=== PATIENT | female | born 1935 | race Caucasian/White ===

== ENCOUNTER → 2019-06-28 | Outpatient (CLI) | payer OTHER ==
[~2019-06-28] MED LIST: ASPIRIN EC81 M1 PO; CARVEDILOL12.5 MG PO; CARVEDILOL25 MG PO; CLONIDINE TTS TOP; CLONIDINE0.1 PO; COZAAR 50 MG TA50 MG PO; COZAAR100 MG PO; LABETALOL 100100 MG PO; LASIX 20 MG TAB20 MG PO; LIPITOR40 MG PO; MIRALAX17 GM PO; MOBIC15 MG PO; MULTIVITAMINS PO; NORVASC 2.5 MG2.5 M1 PO; PRAVACHOL20 MG PO; PROTONIX40 M1 PO; REQUIP0.5 MG PO
== END ==
LOC: M.ULTRA 08:05
DX: I65.23 Occlusion and stenosis of bilateral carotid arteries (principal); Z88.8 Allergy status to other drugs, medicaments and biological substances

== ENCOUNTER → 2019-07-09 | Outpatient (CLI) | payer OTHER ==
[2019-07-09] VITALS (8 sets, daily range): BP systolic 110–149; BP diastolic 58–70
[~2019-07-09] VITALS: Ht 160 cm; Wt 70.3 kg
[2019-07-09 08:51] LABS: HEMATOCRIT 35.5 % (37.0-47.0); HEMOGLOBIN 12.1 gm/dL (12.0-15.0); MCH 30.8 pg (26.0-34.0); MCHC 34.2 g/dL (28.0-37.0); MCV 90.1 fL (80.0-100.0); MPV 9.5 fl. (7.2-11.1); RBC 3.94 mil/uL (4.20-5.00); WBC 6.4 thou/uL (4.0-11.0)
[2019-07-09 09:01] LABS: ANION GAP 7 mmol/L (7-16); BUN 9 mg/dL (7-18); CALCIUM 9.3 mg/dL (8.5-10.1); CHLORIDE 102 mmol/L (98-107); CO2 29 mmol/L (21-32); CREATININE 0.9 mg/dL (0.6-1.3); GLUCOSE 112 mg/dL (70-99); POTASSIUM 4.1 mmol/L (3.5-5.1); SODIUM 138 mmol/L (136-145)
[2019-07-09 09:05] LABS: ALBUMIN 3.5 g/dL (3.4-5.0); ALKALINE PHOSPHATASE 83 U/L (46-116); CHOLESTEROL 210 mg/dL (<200); HDL CHOLESTEROL 46 mg/dL (>40); LDL CHOLESTEROL 113 mg/dL (<100); SGOT 15 U/L (15-37); SGPT 19 U/L (30-65); TC:HDL 4.6 Ratio (Not establshd); TOTAL BILIRUBIN 0.4 mg/dL (<0.1-1.0); TOTAL PROTEIN 6.7 g/dL (6.4-8.2); TRIGLYCERIDE 255 mg/dL (<150); VLDL 51 mg/dL (<40)
[2019-07-09 09:06] LABS: SERUM ASSESSMENT Clear
[2019-07-09 09:31] LABS: APTT 31.4 Seconds (25.0-31.3); PROTIME 10.3 Seconds (9.20-11.50)
--- NOTE | 2019-07-09 14:23 | CARD ---
[address] [address] CARDIAC CATH REPORT Name: POLLY SYED Room: [facility] BENITA SparksCassandra#: [id number] Admission: 07/09/19 Attend Phys: Ghanshyam Gates MD, Discharge: Date of : 37 Report #: [id number] THIS REPORT FOR: //name// APPROVED REPORT Study performed: 07/09/2019 08:17:[address] Gates Procedures Performed Left heart catheterization left ventriculography and selective coronary arteriography Indication Chest pain Risk Factors Hypercholesterolemia, Hypertension Procedure Narrative The patient was brought electively to the Cardiac Catheterization Laboratory and was prepped and draped in a sterile manner. The right femoral was infiltrated with 2% Lidocaine subcutaneous anesthesia. A 6 Surinamese sheath was inserted into the right femoral artery. Coronary angiography was performed using coronary diagnostic catheters. The right coronary system was accessed and visualized with a Diagnostic catheter. The left coronary system was accessed and visualized with a Diagnostic catheter. The left ventricle was accessed and visualized with a Diagnostic catheter. Left ventricular/Aortic Valve gradient assessed via catheter pullback. Left ventriculogram was performed in JAEGER projection. Pre-demployment femoral angiogram was performed . Closure device was deployed with a 6 Fr Mynx. There was no hematoma. Diagnostic Cath Left Main 0% narrowing LAD 100% proximal occlusion with prominent right to left and faint [id number] collaterals filling the distal LAD system Circumflex 0% narrowing Right Coronary Dominant vessel with 20% mid vessel narrowing and 40% proximal posterior descending branch stenosis Left Ventriculography The left ventricle is normal in size with normal contractility. The [address] [address] CARDIAC CATH REPORT Name: POLLY SYED Room: [facility] LISANDRO Clare.#: [id number] Admission: 07/09/19 Attend Phys: Ghanshyam Gates MD, Discharge: Date of : 37 Report #: [id number] left ventricular ejection fraction is estimated to be 65%. Left ventricular wall motion abnormalities are not present. There is no mitral insufficiency. Hemodynamics The aortic pressure is 140/70 mmHg with a mean of 82 mmHg. The left ventricular end diastolic pressure is 20 mmHg. There was no gradient across the aortic valve upon pullback. Conclusion #1 significant coronary artery disease characterized by the following: A 100% proximal LAD occlusion with prominent right to left and faint left to left collaterals filling the distal LAD system B 20% mid right coronary narrowing with 40% proximal posterior descending branch stenosis #2 normal left ventricular systolic function, estimated ejection fraction being 65% #3 moderate elevation of left ventricular end-diastolic pressure at rest Recommendations Cardiac Risk Reduction Program Diagnostic Cath Approved by: Ghanshyam Gates MD Date/Time: 07/09/2019 14:21:49 <ELECTRONICALLY SIGNED> By: Ghanshyam Gates MD, [facility] 07/09/19 1423 1423 1423Ghanshyam Gates MD, FACC /INF
--- NOTE | 2019-07-09 14:41 | EKG ---
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1935 Requested By: Ghanshyam Gates Order Number: [id number] Ronel MD: Ghanshyam Gates Measurements Intervals Marcus Rate: 52 P: 72 ID: [id number] QRS: -32 QRSD: 108 T: 58 QT: 434 QTc: 404 Interpretive Statements Sinus rhythm Left axis deviation RSR' in V1 or V2, probably normal variant Compared to ECG 08/19/2016 13:04:42 No significant changes Electronically Signed On 07-09-2019 14:41:03 [employer] by Ghanshyam Gates [email or web address] <ELECTRONICALLY SIGNED> By: Ghanshyam Gates MD, [facility] 07/09/19 1441 8 Ghanshyam Gates MD, FAC /EPI
== END | disposition home or self-care (01) ==
LOC: M.CL 07:46
PROVIDERS: Internal Medicine
DX: R07.9 Chest pain, unspecified (principal); I25.10 Atherosclerotic heart disease of native coronary artery without angina pectoris; I10 Essential (primary) hypertension; E78.00 Pure hypercholesterolemia, unspecified; H40.89 Other specified glaucoma; Z98.890 Other specified postprocedural states; Z96.651 Presence of right artificial knee joint; Z90.710 Acquired absence of both cervix and uterus; Z88.8 Allergy status to other drugs, medicaments and biological substances; Z79.82 Long term (current) use of aspirin; Z79.899 Other long term (current) drug therapy